=== PATIENT | male | born 1935 | race Caucasian/White ===

== ENCOUNTER 2019-07-20 23:11 | Emergency (ER) | payer MEDICARE, OTHER, SELFPAY ==
--- NOTE | ~2019-07-20 | CT_ITS ---
EXAMINATION: CTA chest PE protocol DATE: 07/21/2019 00:02 INDICATION: Chest pain. Metastatic cancer. TECHNIQUE: Computed tomography (CT) pulmonary angiogram of the chest was performed with 100 mL Omnipa que-350 intravenous contrast. Additional 3D reconstructions utilizing coronal maximum intensity proje ction (MIP) were performed. Automated exposure control and iterative reconstruction technique were em ployed. The dose-length product was 364.04 mGy-cm. COMPARISON: None FINDINGS: Excellent contrast opacification of the pulmonary arteries. There is mild streak artifact from dense contrast in the superior vena cava and right atrium. No significant motion artifact yielding diagnost ic quality study which demonstrates no pulmonary embolism. Severe emphysema. No pneumonia, pulmonary edema or pleural effusion. Bilateral calcified biapical pleural plaques. There are a few scattered bi lateral pulmonary nodules. These include several small peripherally calcified nodules consistent with old granulomatous disease. There are also larger nodules which are other noncalcified or a few with small central calcifications. The largest include noncalcified nodules measuring 1.2 cm along the jacki or fissure at the inferior left lower lobe, 1.1 cm in the right upper lobe and several with small ass ociated calcifications including 12 mm in the right upper lobe, 9 mm in the superior segment of the l eft lower lobe and 5 mm in the left upper lobe which could be either additional granulomatous disease or potentially treated neoplasm. Heart size is normal. Small pericardial effusion. Atherosclerotic c oronary artery Calcination. Normal caliber thoracic aorta with no dissection. Scattered atherosclerot ic calcific changes along the aorta and the great vessels. Enlargement of the central pulmonary arter ies consistent with pulmonary arterial hypertension. Right subclavian central venous port catheter wi th distal tip in the midsuperior vena cava. Small hepatic calcification and several splenic calcifica tions is also consistent with old granulomatous disease. There is a subcapsular fluid collection at t he periphery of the spleen which measures approximately 8 x 8 x 1 cm with mixed attenuation suggestin g hematoma at least some of which is subacute. Sutures and surgical clips postoperative change of zion or right nephrectomy. IMPRESSION: 1. 8 x 8 x 1 cm splenic subcapsular hematoma have a small which is subacute. 2. Several bilateral pulmonary nodules including both noncalcified and some with small calcifications which could be either old granulomatous disease or neoplastic including possible treated metastases. Recommend correlation with any prior outside imaging and clinical history. 3. Severe emphysema. 4. Small pericardial effusion. Reviewed, dictated and finalized at location A. IMPRESSION: 1. 8 x 8 x 1 cm splenic subcapsular hematoma have a small which is subacute. 2. Several bilateral pulmonary nodules including both noncalcified and some wit h small calcifications which could be either old granulomatous disease or neopl astic including possible treated metastases. Recommend correlation with any zion or outside imaging and clinical history. 3. Severe emphysema. 4. Small pericardial effusion.
[2019-07-20 23:09] VITALS: BP 199/74; PULSE 80; RESP 23; TEMP 36.9; O2SAT 97
--- NOTE | 2019-07-20 23:09 | ED.CHESTPAIN ---
HPI - Chest Pain General Chief Complaint: Chest Pain Stated Complaint: cp Source: patient and EMS Mode of arrival: EMS Limitations: no limitations History of Present Illness HPI narrative: Patient is an 84-year-old male with a history of metastatic bladder cancer currently on chemotherapy who presents for evaluation of chest pain. Patient reports acute onset of chest pain approximately 30 minutes ago while the patient was at rest. Pain is sharp, stabbing in nature located in the anterior lower chest, right above the epigastrium. He had associated nausea, no shortness of breath. No pleuritic type pain. Patient without history of chest pain in the past. No history of cardiac problems per patient. No history of high blood pressure high cholesterol. Patient was given nitroglycerin in route which improved his pain greatly. Currently, pain is moderate in nature. No radiation to the neck, jaw or back. No fever, cough or congestion. Patient lives in independent living. He reports bilateral lower extremity edema for which he is prescribed diuretics, but has not been taking any as they are prescribed as needed. Patient's physicians are at [facility]. Related Data Allergies Allergy/AdvReac Type Severity Reaction Status Date / Time ampicillin Allergy Unknown Verified 07/20/19 23:23 Benzoate Analogues Allergy Unknown Verified 07/20/19 23:23 Penicillins Allergy Unknown Verified 07/20/19 23:23 povidone-iodine Allergy Unknown Verified 07/20/19 23:23 [From Betadine] soap [From Betadine] Allergy Unknown Verified 07/20/19 23:23 cephaoscroins Allergy Unknown Uncoded 07/20/19 23:23 surgical tape Allergy Unknown Uncoded 07/20/19 23:23 Review of Systems Review of Systems: Narrative: CONSTITUTIONAL: Denies fever, chills, or sweats. EYES: Denies visual changes, redness, or discharge. ENT: Denies rhinorrhea, congestion, sore throat, or otalgia. CARDIOVASCULAR: Reports chest pain, reports bilateral lower extremity edema RESPIRATORY: Denies cough or dyspnea. GASTROINTESTINAL: Denies abdominal pain, nausea, vomiting, or diarrhea. GENITOURINARY: Denies hematuria. SKIN: Denies rash or itching. MUSCULOSKELETAL: Denies back pain, joint pain, or myalgia. NEUROLOGIC: Denies headache, numbness, or weakness. [facility] Past Medical History Medical History (Updated 05/05/20 @ 03:07 by Saira Lam MD) Diabetes Heart murmur Herniated lumbar disc without myelopathy Surgical History Surgical History (Updated 07/20/19 @ 23:31 by Saira Lam MD) H/O transurethral resection of prostate History of nephrectomy, right History of urostomy Social History Social History (Updated 07/20/19 @ 23:32 by Saira Lam MD) Alcohol intake: never Substance use: never Gender identity (if verbalized by the patient): Male Exam Narrative: Exam Narrative: GENERAL: Awake, alert, conversant HEAD: Normocephalic, atraumatic. EYES: PERRLA and EOMI. ENT: Nares clear, no rhinorrhea or epistaxis. Mucous membranes moist. NECK: Supple. CHEST: Port overlying right chest. No respiratory distress, breathing even and non labored no reproducible chest wall pain HEART: Regular rate, sinus rhythm, Grade II systolic murmur ABDOMEN:Non distended, non tender, urostomy in place EXTREMITIES: Normal range of motion. 2+ pitting edema bilaterally to the knees SKIN: Warm, dry, no rash. NEURO:No focal deficits. Alert and oriented x3 Course Vital Signs Vital signs: Vital Signs Temperature 36.9 C 07/20/19 23:09 Pulse Rate 80 07/20/19 23:09 Respiratory Rate 23 H 07/20/19 23:09 Blood Pressure 199/74 H 07/20/19 23:09 Pulse Oximetry 97 07/20/19 23:09 Temperature 37.1 C 07/21/19 02:34 Pulse Rate 70 07/21/19 02:34 Respiratory Rate 21 H 07/21/19 02:34 Blood Pressure 154/76 H 07/21/19 02:34 Pulse Oximetry 97 07/21/19 02:34 Transfer Transfered to: [facility] Transportation: ALS Transfer rationale: Continuity
[2019-07-20 23:15] VITALS: PULSE 76
--- NOTE | 2019-07-20 23:16 | ECG_ITS ---
Measurements Intervals [place] Rate: 80 P: 86 CT: 187 QRS: -72 QRSD: 147 T: 71 QT: 404 QTc: 468 Interpretive Statements SINUS RHYTHM ATRIAL COUPLET, ATRIAL AND VENTRICULAR PREMATURE COMPLEXES RIGHT BUNDLE BRANCH BLOCK ABNORMAL ECG Electronically Signed On 07-21-2019 6:57:50 CDT by Dave Fletcher D.O.
[2019-07-20] MEDS: NITROGLYCERIN SL 0.4 MG TABLET SUBLINGUAL (23:35)
[2019-07-20] MEDS: ONDANSETRON INJ 4 MG/2 ML VIAL IV PUSH (23:36)
[2019-07-20] MEDS: MORPHINE SULFATE 2 MG/ML INJ IV PUSH (23:37)
--- NOTE | 2019-07-20 23:39 | PC.NURSE ---
em,s administered 1 0.4 mg SL nitro captain assistant. administered 0.4 nitro SL 2335 172/62 pt rates cp at 3 pt refused third dose of nitro. pt rates cp at 1 2340.
[2019-07-20 23:41] VITALS: BP 96/46; PULSE 84; RESP 22; O2SAT 97
[2019-07-20 23:41] LABS: Hematocrit 26.8 % (42.0-52.0); Immature Platelet Fraction Pct 5.1 % (0.9-11.2); Mean Corpuscular HGB Conc 33.6 g/dl (32-36); Mean Corpuscular Hemoglobin 35.2 pg (26-34); Mean Corpuscular Volume 104.7 fl (80-100); Mean Platelet Volume 10.6 fl (7.4-10.4); Platelet Count Result 69 k/mm3 (150-375); Red Blood Count 2.56 M/mm3 (4.6-6.20); Red Cell Distribution Width 19.5 % (11.5-14.5); White Blood Count 28.1 K/mm3 (4.5-10.0)
--- NOTE | 2019-07-20 23:46 | PC.NURSE ---
pt down to ct
[2019-07-20 23:49] LABS: INR 1.2; Prothrombin Time 14.4 Seconds (11.1-14.7)
[2019-07-20 23:52] LABS: Estimated Glomerular Filt Rate > 60
[2019-07-20 23:55] LABS: Blood Urea Nitrogen 14 mg/dL (9-20); Calcium 9.2 mg/dL (8.4-10.2); Carbon Dioxide 23 mmol/L (22-30); Chloride 100 mmol/L (98-107); Estimated Glomerular Filt Rate > 60; Glucose 134 mg/dL (75-110); Potassium 4.2 mmol/L (3.4-5.0); Sodium 133 mmol/L (137-145)
[2019-07-20 23:59] LABS: Band Neutrophils Percent 5 % (0-6); Monocytes Absolute Manual 2.24 K/mm3 (0.1-0.90); Monocytes Percent Manual 8 % (3-9); Neutrophils Absolute Manual 24.44 K/mm3 (1.3-6.7); Neutrophils Percent Manual 82 % (46-73); Total Cells Counted 100
[2019-07-21] LABS: Macrocytosis 1+ (NORMAL); Platelet Estimate Decreased (Adequate)
[2019-07-21 00:08] LABS: NT Pro B Type Natriuretic Pept 1090 PG/ML (5-100); Troponin I < 0.012 ng/mL (0.000-0.034)
[2019-07-21 00:37] VITALS: BP 133/55; PULSE 73; RESP 19; O2SAT 98
[2019-07-21 01:30] VITALS: BP 164/64; PULSE 77; RESP 16; O2SAT 100
[2019-07-21 02:34] VITALS: BP 154/76; PULSE 70; RESP 21; TEMP 37.1; O2SAT 97
--- NOTE | 2019-07-21 02:37 | PC.NURSE ---
called Report to IMU RN at [facility]. Spoke w/ DOROTHY Ornelas no questions at this time.
--- NOTE | 2019-07-21 02:40 | PC.NURSE ---
[facility] has accepted to take pt to [facility] ETA [id number]
[2019-07-21 03:00] LABS: Troponin I < 0.012 ng/mL (0.000-0.034)
[2019-07-21 03:02] LABS: Add Urine Microscopic? YES; Appearance Urine Cloudy (Clear); Bacteria Urine Trace /hpf; Bilirubin Urine Negative (Negative); Blood Urine 2+ (Negative); Color Urine Yellow (Yellow); Glucose Urine UA Negative (Negative); Ketones Urine Negative (Negative); Leukocyte Esterase Ur 2+ LEU/UL (Negative); Mucus Urine Rare /lpf; Nitrate Urine Positive (Negative); Protein Urine 1+ mg/dL (Negative); Specific Grav Ur 1.025 (1.001-1.035); Urobilinogen Urine Negative mg/dL (<2.0)
[2019-07-21] MEDS: CIPROFLOXACIN 500 MG TAB PO (03:12)
[2019-07-21 03:20] VITALS: BP 144/67; PULSE 71; RESP 19; TEMP 37.2; O2SAT 98
== END 2019-07-21 03:20 | disposition short-term general hospital (02) ==
PROVIDERS: Emergency Provider Emergency Medicine; PCP Internal Medicine
DX: R07.89 Other chest pain (principal); N39.0 Urinary tract infection, site not specified; D72.829 Elevated white blood cell count, unspecified; D69.6 Thrombocytopenia, unspecified; C79.11 Secondary malignant neoplasm of bladder; E11.9 Type 2 diabetes mellitus without complications; Z90.79 Acquired absence of other genital organ(s); Z90.5 Acquired absence of kidney; Z79.899 Other long term (current) drug therapy; R00.8 Other abnormalities of heart beat; I49.3 Ventricular premature depolarization; I45.10 Unspecified right bundle-branch block; J43.9 Emphysema, unspecified; R91.8 Other nonspecific abnormal finding of lung field
CPT/HCPCS: 36415; 71275; 80048; 81001; 83880; 84484; 85025; 85055; 85610; 85730; 87077; 87086; 87088; 87186; 93005; 96374; 96375; 99285; A9270; J2270; J2405; Q9967

== ENCOUNTER 2019-11-15 07:38 | Inpatient (IN) | payer OTHER, MEDICARE, SELFPAY ==
[2019-11-15] VITALS (7 sets, daily range): BP systolic 54–111; BP diastolic 29–54; PULSE 77–164; RESP 23–41; TEMP 36.1; O2SAT 70–100
--- NOTE | ~2019-11-15 | XR_ITS ---
EXAMINATION: XR chest 1V portable DATE: 11/15/2019 08:11 INDICATION: Sepsis. Tachypnea. TECHNIQUE: frontal view of the chest was obtained. COMPARISON: Chest CT dated 07/20/2019 FINDINGS: Emphysema. Prominent partially calcified biapical pleural-parenchymal scarring. Again seen are a few scattered pulmonary nodules the largest at the left lung base. There is a band of subtle increased de nsity extending along the anterior left fourth rib. No pulmonary edema, pleural effusion or pneumotho rax. Cardiomediastinal silhouette is normal. Right subclavian central venous port catheter with dista l tip at the caudal superior vena cava. IMPRESSION: 1. Subtle band of increased opacity in the left lower lung zone extending along the anterior left fou rth rib. This could represent a sclerotic lesion in the rib potentially metastatic in patient with kn own malignancy, artifactual superimposition of rib and pectoral soft tissue shadows or subtle underly ing pneumonia. 2. Severe emphysema with prominent calcified biapical pleural-parenchymal scarring. 3. A few scattered small pulmonary nodules the largest at the left lung base which could be either me tastatic old granulomatous disease. Reviewed, dictated and finalized at location A. IMPRESSION: 1. Subtle band of increased opacity in the left lower lung zone extending along the anterior left fourth rib. This could represent a sclerotic lesion in the r ib potentially metastatic in patient with known malignancy, artifactual superim position of rib and pectoral soft tissue shadows or subtle underlying pneumonia . 2. Severe emphysema with prominent calcified biapical pleural-parenchymal scarr ing. 3. A few scattered small pulmonary nodules the largest at the left lung base wh ich could be either metastatic old granulomatous disease.
--- NOTE | 2019-11-15 07:42 | ED.ABDPAIN ---
HPI - Abdominal Pain General Chief Complaint: Weakness Stated Complaint: abd pain Time Seen by Provider: 11/15/19 07:41 Source: patient, family and EMS Mode of arrival: EMS Limitations: no limitations and clinical condition History of Present Illness HPI narrative: Patient is an 84-year-old male with a history of metastatic bladder cancer who presents for evaluation of abdominal pain. Per EMS, patient reportedly called them for feeling generally unwell, concern for constipation. In the time of assessment by EMS, patient was hypotensive, very cachectic appearing and tachypneic. Patient transported to our facility under respiratory precautions, they were unable to obtain an IV. Patient states that he has been feeling slightly short of breath, reporting abdominal pain, denies fever, nausea or vomiting. 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 No recent sick contacts. No diarrhea. Patient is awake, alert and oriented, not able to provide many details as to his illness. He is fatigued appearing. Related Data Allergies Allergy/AdvReac Type Severity Reaction Status Date / Time ampicillin Allergy Unknown Verified 11/15/19 08:05 Benzoate Analogues Allergy Unknown Verified 11/15/19 08:05 Penicillins Allergy Unknown Verified 11/15/19 08:05 povidone-iodine Allergy Unknown Verified 11/15/19 08:05 [From Betadine] soap [From Betadine] Allergy Unknown Verified 11/15/19 08:05 cephaoscroins Allergy Unknown Uncoded 11/15/19 08:05 surgical tape Allergy Unknown Uncoded 11/15/19 08:05 Review of Systems Review of Systems: ROS unobtainable: Yes unobtainable due to medical condition PMFSH Past Medical History Medical History Diabetes Heart murmur Herniated lumbar disc without myelopathy Metastatic cancer Surgical History Surgical History H/O transurethral resection of prostate History of nephrectomy, right History of urostomy Social History Social History Alcohol intake: never Substance use: never Gender identity (if verbalized by the patient): Male Exam Narrative: Exam Narrative: GENERAL: Awake, fatigued, cachectic HEAD: Normocephalic, atraumatic. EYES: PERRLA and EOMI. ENT: Nares clear, no rhinorrhea or epistaxis. Mucous membranes dry NECK: Supple. CHEST: No respiratory distress, breathing even and non labored, port over right chest wall HEART: Tachycardic rate, sinus rhythm ABDOMEN: Urostomy in place, large hernia/mass overlying lower abdomen, nontender, no overlying skin changes EXTREMITIES: Normal range of motion. No edema. SKIN: Cool, dry NEURO:No focal deficits. Alert and oriented x3, unable to provide many details as to his history Course Vital Signs Vital signs: Vital Signs Temperature 36.1 C L 11/15/19 07:56 Pulse Rate 164 H 11/15/19 07:56 Respiratory Rate 26 H 11/15/19 07:56 Blood Pressure 54/33 L 11/15/19 07:56 Pulse Oximetry 70 L 11/15/19 07:56 Temperature 36.1 C L 11/15/19 07:56 Pulse Rate 80 11/15/19 10:22 Respiratory Rate 31 H 11/15/19 10:22 Blood Pressure 86/29 L 11/15/19 10:22 Pulse Oximetry 100 11/15/19 10:22 MDM - Abdominal Pain Differential Diagnosis Differential diagnosis: Likely constipation, diverticulitis, gastroenteritis, pancreatitis, small bowel obstruction and other (Sepsis, septic shock) Medical Records Attestation: I reviewed the patient's medical records. Medical records narrative: Patient is an 84-year-old with a history of metastatic cancer, currently awaiting to have coordination with hospice care who presented from home for evaluation of abdominal pain. At the time of assessment, ABCs are notable for a fatigued, hypo
--- NOTE | 2019-11-15 07:49 | ECG_ITS ---
Measurements Intervals [place] Rate: 91 P: 90 [place]: 205 QRS: -81 QRSD: 137 T: 73 QT: 376 QTc: 463 Interpretive Statements SINUS RHYTHM WITH FIRST DEGREE AV BLOCK RIGHT BUNDLE BRANCH BLOCK LEFT ANTERIOR FASCICULAR BLOCK BASELINE ARTIFACT- I, AVR, AVL, V4-V6 ABNORMAL ECG Electronically Signed On 11-15-2019 8:50:41 CDT by Dave Fletcher D.O.
--- NOTE | 2019-11-15 08:00 | PC.NURSE ---
Pt placed on non rebreather at 15L for comfort by Dr. Lam
[2019-11-15] MEDS: SODIUM CHLORIDE 0.9% IV 1,000 ML 999 ML IV CONT (08:05)
[2019-11-15] MEDS: SODIUM CHLORIDE 0.9% IV 500 ML 999 ML IV CONT (08:16)
[2019-11-15 08:19] LABS: Basophils Absolute Auto 0.2 K/mm3 (0.0-0.1); Basophils Percent Auto 0.6 % (0.2-1.2); Hematocrit 29.4 % (42.0-52.0); Hemoglobin 9.6 g/dL (14.0-18.0); Immature Granulocyte Percent A 5.6 % (0-0.5); Immature Platelet Fraction Pct 10.6 % (0.9-11.2); Lymphocytes Absolute Auto 1.05 K/mm3 (0.9-3.2); Lymphocytes Percent Auto 3.7 % (18.3-44.2); Mean Corpuscular HGB Conc 32.7 g/dl (32-36); Mean Corpuscular Hemoglobin 35.4 pg (26-34); Mean Corpuscular Volume 108.5 fl (80-100); Monocytes Absolute Auto 2.1 K/mm3 (0.1-0.6); Monocytes Percent Auto 7.5 % (2.6-8.5); Neutrophils Absolute Auto 23.4 K/mm3 (1.3-6.7); Neutrophils Percent Auto 82.6 % (45.5-73.1); Nucleated Red Blood Cells Perc 0.1 % (0.0-0.2); Red Blood Count 2.71 M/mm3 (4.6-6.20); Red Cell Distribution Width 14.6 % (11.5-14.5); White Blood Count 28.4 K/mm3 (4.5-10.0)
[2019-11-15 08:23] LABS: Add Urine Microscopic? YES; Amorphous Sediment Urine Few; Appearance Urine Turbid (Clear); Bacteria Urine Trace /hpf; Bilirubin Urine Negative (Negative); Blood Urine Negative (Negative); Color Urine Yellow (Yellow); Glucose Urine UA Negative (Negative); Ketones Urine Trace mg/dL (Negative); Leukocyte Esterase Ur Negative LEU/UL (Negative); Mucus Urine Rare /lpf; Nitrate Urine Negative (Negative); Platelet Count Result 22 k/mm3 (150-375); Protein Urine 2+ mg/dL (Negative); Specific Grav Ur 1.014 (1.001-1.035); Urobilinogen Urine Negative mg/dL (<2.0); WBC Urine 0-3 /hpf
[2019-11-15 08:29] LABS: Glucose Point of Care 91 (65-105)
[2019-11-15 08:30] LABS: INR 1.9; Prothrombin Time 21.3 Seconds (11.1-14.7)
[2019-11-15 08:31] LABS: Partial Thromboplastin Time 41.3 SECONDS (22.3-36.8)
--- NOTE | 2019-11-15 08:31 | PCRCNOTE ---
unable to obtain ABG diffcult stick, Dr. Lam is aware and said it is okay not to stick
--- NOTE | 2019-11-15 08:41 | PC.NURSE ---
Spoke with [facility] for admission they will be reaching out to Suha the patient's niece.
[2019-11-15 08:45] LABS: Troponin I 0.019 ng/mL (0.000-0.034)
[2019-11-15 08:51] LABS: Alanine Aminotransferase 21 U/L (4-50); Albumin Level 3.9 g/dL (3.5-5.1); Alkaline Phosphatase 122 U/L (38-126); Anion Gap 26 mmol/L (8-16); Aspartate Amino Transferase 23 U/L (17-59); Bilirubin,Total 1.9 mg/dL (0.2-1.3); Blood Urea Nitrogen 22 mg/dL (9-20); CRP 17.2 mg/dL (<1.0); Calcium 9.7 mg/dL (8.4-10.2); Carbon Dioxide 9 mmol/L (22-30); Chloride 100 mmol/L (98-107); Estimated CRCL calculation 37 ml/min; Estimated Glomerular Filt Rate 58; Glucose 101 mg/dL (75-110); Potassium 6.1 mmol/L (3.4-5.0); Sodium 135 mmol/L (137-145)
[2019-11-15 08:52] LABS: Lactic Acid Reflex 12.1 mmol/L (0.7-2.1)
[2019-11-15] MEDS: CALCIUM GLUC 2,000 MG/NS 100ML 2,000 MG/100 ML BAG 100 MG IVPB (09:13)
[2019-11-15] MEDS: INSULIN HUMAN REGULAR (*BKC) 100 UNITS/ML 10 UNITS IV PUSH (09:18)
[2019-11-15] MEDS: DEXTROSE 50% 25 GM/50 ML SYRINGE IV PUSH (09:20)
[2019-11-15] MEDS: SODIUM CHLORIDE 0.9% IV 1,000 ML 150 ML IV CONT (09:20)
[2019-11-15] MEDS: MORPHINE SULFATE 4 MG/ML INJ IV PUSH (09:39)
[2019-11-15 11:15] LABS: Reflex Lactic Acid Yes or No Add Lactic
--- NOTE | 2019-11-15 11:52 | PC.NURSE ---
patient arrived to the floor at 1152. The patient was accompanied by the [facility] nurse and his niece Suha. The patient was made comfortable and I introduced myself to the niece. The patient five minutes after arriving to the unit with the niece, ER nurse and hospice nurse present. The hospice nurse called time of at 1157. I was unable to complete the admission assessment due to the patient passing while we were settling him in.
--- NOTE | 2019-11-16 10:17 | P.HP_ITS ---
H&P: HPI History of Present Illness Date/Time: 11/16/19 10:17 Chief complaint: Septic Shock Narrative: Randy Murphy is a 84 year old male with metastatic bladder cancer. He was bed bound. Unable to tolerate further treatment. For the two days prior to admission, he was not eating or drinking. 3 months ago, he was living alone and had a fair appetitte. He was receiving chemotherapy and RT for his cancer. He was brought to the ED due to severe, uncontrolled pain, severe weakness, and anorexia. However, he remained alert and oriented to person, place, and time. He was in shock with BP's in the 60's systolic, mild hypothermia, leukocytosis, lactic acidosis, but no sign of urinary, plulmonary, or skin infection. Blood cultures were pending. Morphine 4mg IV did not control his pain. He did improve with IV hydromorphone. Niece (POA) was at bedside. Shortly after being admitted, he peacefully. Review of Systems Review of Systems: Narrative: Patient prior to being seen COUNT INCLUDES THE [facility] Past Medical History Medical History Diabetes Heart murmur Herniated lumbar disc without myelopathy Metastatic cancer Surgical History Surgical History H/O transurethral resection of prostate History of nephrectomy, right History of urostomy Family History Family History Father No problems noted. Mother No problems noted. Social History Social History Alcohol intake: never Substance use: never Gender identity (if verbalized by the patient): Male Meds Home Medications and Allergies Allergies Allergy/AdvReac Type Severity Reaction Status Date / Time ampicillin Allergy Unknown Verified 11/15/19 08:05 Benzoate Analogues Allergy Unknown Verified 11/15/19 08:05 Penicillins Allergy Unknown Verified 11/15/19 08:05 povidone-iodine Allergy Unknown Verified 11/15/19 08:05 [From Betadine] soap [From Betadine] Allergy Unknown Verified 11/15/19 08:05 cephaoscroins Allergy Unknown Uncoded 11/15/19 08:05 surgical tape Allergy Unknown Uncoded 11/15/19 08:05 Vital Signs Vital Signs - 24 hr 11/15/19 10:22 11/15/19 11:30 Pulse Rate 80 77 Respiratory Rate 31 H 23 H Blood Pressure 86/29 L 62/36 L Pulse Oximetry 100 100 Exam Narrative: Exam Narrative: Patient prior to being seen Assessment and Plan Assessment and plan (1) Palliative care by specialist: Code(s): Z51.5 - Encounter for palliative care Status: Acute Assessment and Plan: * Required GIP status due to uncontrolled pain and hemodynamic instability for transfer (2) Septic shock: Code(s): A41.9 - Sepsis, unspecified organism; R65.21 - Severe sepsis with septic shock Status: Acute (3) Acute hyperkalemia: Code(s): E87.5 - Hyperkalemia Status: Acute (4) Dehydration: Code(s): E86.0 - Dehydration Status: Acute (5) Malignant neoplasm metastatic from bladder: Code(s): C67.9 - Malignant neoplasm of bladder, unspecified Status: Acute
== END 2019-11-15 12:30 | disposition expired | DRG 871 ==
LOC: ANHED 10:26 → ANH2MED 10:28
PROVIDERS: Admitting Provider Internal Medicine; Emergency Provider Emergency Medicine; PCP Internal Medicine; Visit Provider Internal Medicine
DX: A41.9 Sepsis, unspecified organism (principal); R65.21 Severe sepsis with septic shock; E87.2 Acidosis; C67.9 Malignant neoplasm of bladder, unspecified; E87.5 Hyperkalemia; E11.9 Type 2 diabetes mellitus without complications; E86.0 Dehydration; D72.829 Elevated white blood cell count, unspecified; Z90.5 Acquired absence of kidney
CPT/HCPCS: 36415; 36600; 71045; 80053; 81001; 82948; 83605; 84484; 85025; 85055; 85610; 85730; 86140; 87040; 87077; 93005; 96361; 96365; 96367; 96375; 99291; J0131; J0610; J0692; J1170; J1815; J2060; J2270; J3370; J7030; J7040